=== PATIENT | female | born 1995 | race African-American/Black ===

== ENCOUNTER 2021-08-22 22:36 | Day surgery (SDC) | payer OTHER ==
[2021-08-22 22:59] VITALS: BMI 40.8
[2021-08-22] MEDS ORDERED: hydrALAZINE 20 MG/ML VIAL SLOW IVP PRN (23:29)
== END 2021-08-22 23:40 | disposition home or self-care (01) ==
LOC: CSHLD/OP 22:36
PROVIDERS: ATTEND Family Medicine
DX: O36.8130 Decreased fetal movements, third trimester, not applicable or unspecified (principal); Z3A.35 35 weeks gestation of pregnancy
CPT/HCPCS: 99282

== ENCOUNTER 2021-09-09 14:53 | Inpatient (IN) | payer OTHER ==
[2021-09-09] MEDS ORDERED: Lidocaine 1% (PF) 30 ML VIAL SC PRN (16:23)
[2021-09-09] MEDS ORDERED: Ondansetron PF 4 MG/2 ML Vial IVP PRN (16:23)
[2021-09-09] MEDS ORDERED: Acetaminophen 500 MG TAB PO PRN (16:23)
[2021-09-09] MEDS ORDERED: Butorphanol Tartrate 1 MG/ML VIAL SLOW IVP PRN (16:23)
[2021-09-09] MEDS ORDERED: Promethazine HCl 25 MG/ML VIAL IM PRN (16:23)
[2021-09-09] MEDS ORDERED: hydrALAZINE 20 MG/ML VIAL SLOW IVP PRN (16:23)
[2021-09-09] MEDS ORDERED: NS w/ Oxytocin 30 units 500 ML IV SCH ×2 (16:30→16:45)
[2021-09-09] MEDS ORDERED: Ibuprofen 800 MG TAB PO PRN (16:31)
[2021-09-09] MEDS ORDERED: Misoprostol 200 MCG TAB PR PRN (16:31)
[2021-09-09] MEDS ORDERED: Diphenoxylate HCl/Atropine Tablet PO PRN (16:31)
[2021-09-09] MEDS ORDERED: Carboprost 250 MCG/ML AMP IM PRN (16:31)
[2021-09-09] MEDS ORDERED: HYDROcodone/Acetaminophen 5/325 mg Tablet PO PRN (16:31)
[2021-09-09] MEDS ORDERED: Penicillin G Potassium 5 MILL.UNITS VIAL ONE (16:45)
[2021-09-09] MEDS ORDERED: Penicillin G Potassium 5 MILL.UNITS in Sodium Chloride 0.9% 100 ML IVPB SCH (16:45)
[2021-09-09] MEDS ORDERED: Misoprostol 100 MCG TAB ONE (16:45)
[2021-09-09 16:57] LABS: Hemoglobin 11.1 g/dL (12.0-15.5); Mean Corpuscular HGB CONC 32.1 g/dL (32.0-36.0); Mean Corpuscular Hemoglobin 27.4 pg (27.0-33.0); Mean Corpuscular Volume 85.4 fl (81.6-98.3); Mean Platelet Volume 10.6 fl (7.4-10.4); Platelet Count 305 10x3/uL (150-450); RBC Distribution Width 12.6 % (11.5-14.5); Red Blood Cell (RBC) Count 4.05 10x6/uL (3.90-5.03); White Blood Cell (WBC) Count 6.7 10x3/uL (3.5-10.5)
[2021-09-09 17:16] LABS: ALT (SGPT) 9 U/L (8-55); AST (SGOT) 15 U/L (5-34); Albumin 3.1 g/dL (3.5-5.0); Alkaline Phosphatase 186 U/L (40-110); Anion Gap 11 mmol/L (10-20); BUN (Urea Nitrogen) 7 mg/dL (7.0-18.7); Bilirubin, Total 0.3 mg/dL (0.2-1.2); Calc. Creatinine Clearance 233 mL/min (70-130); Carbon Dioxide 24 mmol/L (22-29); Chloride 104 mmol/L (98-107); Globulin 3.5 g/dL (2.4-3.5); Glucose 82 mg/dL (70-105); Potassium 3.8 mmol/L (3.5-5.1); Protein, Total 6.6 g/dL (6.0-8.3); Sodium 135 mmol/L (136-145)
[2021-09-09 17:36] LABS: Hep B Surf Ag Non-Reactive S/CO (NonReactive); Syphilis Antibody Nonreactive (Nonreactive); Syphilis Antibody Index 0.05 S/CO (<1.00 Non-Reactive)
[2021-09-09 17:38] LABS: HBSAg Index 0.17 S/CO (0-0.99)
[2021-09-09 18:49] LABS: SARS-CoV-2 NAA Rapid Test Not Detected (NotDetected)
[2021-09-09] MEDS: Penicillin G 2.5 MILL.units 2.5 MILL.UNITS in Premix Bag 1 BAG IVPB SCH (20:55)
[2021-09-09 20:58] LABS: Creatinine, Urine 198.36 mg/dL (47-110)
[2021-09-09] MEDS ORDERED: Magnesium Sulfate 20 gm/500 ml 20 GM/500 ML BAG ONE (23:39)
[2021-09-10] MEDS ORDERED: Fentanyl 2 mcg/Bup 0.1% Cadd 100 ML ONE ×2 (00:02→08:10)
[2021-09-10] MEDS ORDERED: Naloxone HCl 0.4 mg/ml Vial IVP PRN ×2 (00:37)
[2021-09-10] MEDS ORDERED: Ondansetron PF 4 MG/2 ML Vial IVP PRN ×2 (00:37→14:58)
[2021-09-10] MEDS ORDERED: Hydrocerin (Eucerin) Cream 120 gm Jar TOP PRN (00:37)
[2021-09-10] MEDS ORDERED: Promethazine HCl 25 MG/ML VIAL IM PRN ×2 (00:37→14:58)
[2021-09-10] MEDS ORDERED: diphenhydrAMINE 50 MG/ML VIAL IVP PRN (00:37)
[2021-09-10] MEDS ORDERED: ePHEDrine Sulfate 50 MG/10 ML VIAL SLOW IVP PRN (00:37)
[2021-09-10] MEDS ORDERED: Acetaminophen 325 MG TAB PO PRN (00:37)
[2021-09-10] MEDS ORDERED: Communication Order-Pharmacy FS SCH (00:45)
[2021-09-10] MEDS ORDERED: Fentanyl 2 mcg/Bupivacaine 0.1% Cassette 100 ML EPIDURAL SCH (00:45)
[2021-09-10] MEDS ORDERED: Lactated Ringer's 500 ML IV PRN (00:47)
[2021-09-10] MEDS: Misoprostol 100 MCG TAB VAG SCH ×2 (01:05→05:01)
[2021-09-10] MEDS: Lactated Ringer's 1,000 ML IV SCH ×3 (01:05→23:12)
[2021-09-10] MEDS: Penicillin G 2.5 MILL.units 2.5 MILL.UNITS in Premix Bag 1 BAG IVPB SCH ×3 (01:24→09:46)
[2021-09-10] MEDS ORDERED: Magnesium Sulfate 20 gm/500 ml 20 GM/500 ML BAG ONE (07:08)
[2021-09-10] MEDS ORDERED: Bupivacaine/Epinephrine 0.25% 30 ML VIAL ONE (08:00)
[2021-09-10] MEDS ORDERED: Lidocaine 1% (PF) 30 ML VIAL ONE (11:24)
[2021-09-10] MEDS ORDERED: Misoprostol 200 MCG TAB ONE (11:24)
[2021-09-10 13:03] LABS: RapidComm Collect By CBN
[2021-09-10] MEDS ORDERED: Benzocaine-Menthol 82.5 ML CAN TOP PRN (14:58)
[2021-09-10] MEDS ORDERED: Labetalol HCl 100 MG/20 ML VIAL SLOW IVP PRN (14:58)
[2021-09-10] MEDS ORDERED: NS w/ Oxytocin 30 units 500 ML IV SCH (14:58)
[2021-09-10] MEDS ORDERED: hydrALAZINE 20 MG/ML VIAL SLOW IVP PRN ×2 (14:58)
[2021-09-10] MEDS ORDERED: Lanolin Ointment 7 GM TUBE TOP PRN (14:58)
[2021-09-10] MEDS ORDERED: diphenhydrAMINE 25 MG CAP PO PRN (14:58)
[2021-09-10] MEDS ORDERED: Calcium Gluc 4.6 MEQ/10 ML (100 MG/ML) SLOW IVP PRN (14:58)
[2021-09-10] MEDS ORDERED: Milk Of Magnesia 30 ML UDCUP PO PRN (14:58)
[2021-09-10] MEDS ORDERED: Bisacodyl 10 MG SUPP PR PRN (14:58)
[2021-09-10] MEDS: HYDROcodone/Acetaminophen 5/325 mg Tablet PO PRN ×2 (16:45→16:46)
[2021-09-10] MEDS: Magnesium Sulfate 20 gm/500 ml 20 GM/500 ML BAG IVPB SCH (16:50)
[2021-09-10 17:31] LABS: RapidComm Collect By CBN; pH (Cord, venous) 7.279 (7.250-7.350)
[2021-09-10 18:07] VITALS: BMI 43.1
[2021-09-10] MEDS ORDERED: cloNIDine 0.1 MG TAB PO PRN (19:29)
[2021-09-10] MEDS: NIFEdipine XL 30 MG TAB PO SCH (22:04)
[2021-09-10] MEDS: Docusate 100 MG CAP PO SCH (22:04)
[2021-09-11] MEDS: Ibuprofen 800 MG TAB PO SCH ×5 (00:16→20:53)
[2021-09-11] MEDS: Magnesium Sulfate 20 gm/500 ml 20 GM/500 ML BAG IVPB SCH (02:11)
[2021-09-11 05:10] LABS: Magnesium 6.3 mg/dL (1.6-2.6)
[2021-09-11] MEDS: HYDROcodone/Acetaminophen 5/325 mg Tablet PO PRN (06:14)
[2021-09-11] MEDS: Ferrous Sulfate 325 MG TAB PO SCH ×3 (12:16→16:58)
[2021-09-11] MEDS: Prenatal Vitamin 1 TAB PO SCH (12:18)
[2021-09-11] MEDS: Docusate 100 MG CAP PO SCH ×2 (12:18→20:53)
[2021-09-11] MEDS ORDERED: Boostrix 0.5 ML (Tdap) VIAL IM ONE (14:58)
[2021-09-11] MEDS: Penicillin G 2.5 MILL.units 2.5 MILL.UNITS in Premix Bag 1 BAG IVPB SCH (16:58)
[2021-09-11] MEDS: NIFEdipine XL 30 MG TAB PO SCH (20:53)
[2021-09-12] MEDS: Ibuprofen 800 MG TAB PO SCH ×2 (05:53→14:19)
[2021-09-12] MEDS: Docusate 100 MG CAP PO SCH (08:26)
[2021-09-12] MEDS: Ferrous Sulfate 325 MG TAB PO SCH (08:27)
[2021-09-12] MEDS: Prenatal Vitamin 1 TAB PO SCH (08:27)
[2021-09-12 11:35] VITALS: BP 136/75; TEMP 98.5
== END 2021-09-12 16:30 | disposition home or self-care (01) | DRG 807 ==
LOC: CSHLD 14:53 → CSHPP 09-11 16:15
PROVIDERS: ADMIT Family Medicine; ATTEND Family Medicine
PROC: 10D07Z6 Extraction of Products of Conception, Vacuum, Via Natural or Artificial Opening (ICD-10-PCS; principal; 2021-09-10)
PROC: 3E0P7VZ Introduction of Hormone into Female Reproductive, Via Natural or Artificial Opening (ICD-10-PCS; 2021-09-10)
PROC: 3E0334Z Introduction of Serum, Toxoid and Vaccine into Peripheral Vein, Percutaneous Approach (ICD-10-PCS; 2021-09-10)
PROC: 10907ZC Drainage of Amniotic Fluid, Therapeutic from Products of Conception, Via Natural or Artificial Opening (ICD-10-PCS; 2021-09-10)
PROC: 0W8NXZZ Division of Female Perineum, External Approach (ICD-10-PCS; 2021-09-10)
DX: O14.94 Unspecified pre-eclampsia, complicating childbirth (principal); Z37.0 Single live birth; Z20.822 Contact with and (suspected) exposure to COVID-19; Z3A.38 38 weeks gestation of pregnancy; O99.824 Streptococcus B carrier state complicating childbirth; E66.9 Obesity, unspecified; O99.214 Obesity complicating childbirth; O26.893 Other specified pregnancy related conditions, third trimester; Z67.21 Type B blood, Rh negative; O76 Abnormality in fetal heart rate and rhythm complicating labor and delivery
CPT/HCPCS: 36415; 80053; 82570; 82805; 83735; 84156; 85027; 85461; 86780; 86850; 86900; 86901; 87340; 88307; 90384; 96372; J0360; J0595; J2540; J2590; J3475; J7120; U0002

== ENCOUNTER 2022-02-18 11:23 | Outpatient (CLI) | payer OTHER | END 2022-02-18 11:24 | disposition home or self-care (01) | LOC: CSHRAD 11:23 | PROVIDERS: ATTEND Family Medicine | DX: M54.6 Pain in thoracic spine (principal); G89.29 Other chronic pain; M54.50 Low back pain, unspecified; M53.87 Other specified dorsopathies, lumbosacral region | CPT/HCPCS: 72072; 72100 ==

== ENCOUNTER 2022-04-26 12:30 | Emergency (ER) | payer OTHER ==
[2022-04-26 14:38] LABS: Bilirubin Neg (Negative); Blood, Urine 250 (Negative); Clarity Clear (Clear); Glucose, Urine (Dipstick) Normal (Negative); Ketone, Urine Negative (Negative); Leukocyte 25 (Negative); Nitrite Negative (Negative); Protein, Urine (Dipstick) 15 mg/dl (Neg-Trace)
[2022-04-26 14:40] LABS: Pregnancy Test - Urine (BHCG) Negative (Negative); Pregu Control Background? CLEAR/WHITE (CLR/WHITE); Pregu Control Bar Appear? YES (CONTROL BAR)
[2022-04-26 14:44] LABS: Bacteria/HPF None Seen HPF (None Seen); Squamous Epithelial 0-3 HPF (0-3); WBC/HPF 0-3 HPF (0-3)
== END 2022-04-26 15:00 | disposition home or self-care (01) ==
LOC: CSHERS 12:30
DX: K08.89 Other specified disorders of teeth and supporting structures (principal); R30.0 Dysuria
CPT/HCPCS: 81003; 81015; 81025; 99283

== ENCOUNTER 2022-05-16 10:58 | Emergency (ER) | payer OTHER ==
[2022-05-16 12:35] LABS: Bilirubin Neg (Negative); Blood, Urine Negative (Negative); Clarity Clear (Clear); Glucose, Urine (Dipstick) Normal (Negative); Ketone, Urine Negative (Negative); Leukocyte 25 (Negative); Nitrite Negative (Negative); Protein, Urine (Dipstick) Negative (Neg-Trace); Urobilinogen Normal mg/dL (Less than 2)
[2022-05-16 12:39] LABS: Pregnancy Test - Urine (BHCG) Negative (Negative); Pregu Control Background? CLEAR/WHITE (CLR/WHITE); Pregu Control Bar Appear? YES (CONTROL BAR)
[2022-05-16 13:01] LABS: Bacteria/HPF None Seen HPF (None Seen); RBC/HPF None Seen HPF (0-3); WBC/HPF None Seen HPF (0-3)
== END 2022-05-16 13:17 | disposition home or self-care (01) ==
LOC: CSHERS 10:58
DX: J20.9 Acute bronchitis, unspecified (principal)
CPT/HCPCS: 71045; 81003; 81015; 81025; 87804

== ENCOUNTER 2023-10-19 09:52 | Outpatient (CLI) | payer OTHER | END 2023-10-19 09:53 | disposition home or self-care (01) | LOC: CSHULT 09:52 | PROVIDERS: ATTEND Nurse Practitioner Women's Health | DX: O09.892 Supervision of other high risk pregnancies, second trimester (principal); Z3A.26 26 weeks gestation of pregnancy | CPT/HCPCS: 76805 ==

== ENCOUNTER 2024-01-10 21:58 | Inpatient (IN) | payer OTHER ==
[2024-01-10 22:17] VITALS: BMI 42.4
[2024-01-10] MEDS ORDERED: hydrALAZINE 20 MG/ML VIAL SLOW IVP PRN (23:48)
[2024-01-11] MEDS ORDERED: Tranexamic Acid 1,000 MG/10 ML VIAL IVP PRN (01:00)
[2024-01-11] MEDS ORDERED: Acetaminophen 500 MG TAB PO PRN (01:00)
[2024-01-11] MEDS ORDERED: Ondansetron PF 4 MG/2 ML Vial IVP PRN ×3 (01:00→05:35)
[2024-01-11] MEDS ORDERED: Carboprost 250 MCG/ML AMP IM PRN (01:00)
[2024-01-11] MEDS ORDERED: Promethazine HCl 25 MG/ML VIAL IM PRN ×3 (01:00→05:35)
[2024-01-11] MEDS ORDERED: Oxytocin 30 units/NS 500 ML 500 ML IV SCH ×3 (01:00→05:35)
[2024-01-11] MEDS ORDERED: Lidocaine 1% (PF) 30 ML VIAL SC PRN (01:00)
[2024-01-11] MEDS ORDERED: Misoprostol 200 MCG TAB PR PRN (01:00)
[2024-01-11] MEDS ORDERED: Ibuprofen 800 MG TAB PO PRN (01:00)
[2024-01-11] MEDS ORDERED: Docusate 100 MG CAP PO PRN (01:00)
[2024-01-11] MEDS ORDERED: hydrALAZINE 20 MG/ML VIAL SLOW IVP PRN ×2 (01:00→05:35)
[2024-01-11] MEDS ORDERED: Methylergonovine 0.2 MG/ML VIAL IM PRN (01:00)
[2024-01-11] MEDS ORDERED: Diphenoxylate HCl/Atropine Tablet PO PRN ×2 (01:00)
[2024-01-11] MEDS: fentaNYL 50 mcg/mL 1 mL Vial SLOW IVP SCH (01:19)
[2024-01-11 01:21] LABS: Hemoglobin 11.2 g/dL (12.0-15.5); Mean Corpuscular Hemoglobin 26.1 pg (27.0-33.0); Mean Corpuscular Volume 81.6 fL (81.6-98.3); Mean Platelet Volume 10.4 fL (7.4-10.4); Platelet Count 362 10x3/uL (150-450); RBC Distribution Width 13.2 % (11.5-14.5); Red Blood Cell (RBC) Count 4.29 10x6/uL (3.90-5.03); White Blood Cell (WBC) Count 7.4 10x3/uL (3.5-10.5)
[2024-01-11 01:53] LABS: Syphilis Antibody Nonreactive (Nonreactive); Syphilis Antibody Index 0.06 S/CO (<1.00 Non-Reactive)
[2024-01-11 01:54] LABS: Hep B Surf Ag - L&D Non-Reactive S/CO (NonReactive)
[2024-01-11] MEDS ORDERED: Lactated Ringer's 500 ML IV PRN (01:56)
[2024-01-11] MEDS ORDERED: diphenhydrAMINE 50 MG/ML VIAL IVP PRN (01:56)
[2024-01-11] MEDS ORDERED: Naloxone HCl 0.4 mg/ml Vial IVP PRN ×2 (01:56)
[2024-01-11] MEDS ORDERED: ePHEDrine Sulfate 50 MG/10 ML VIAL SLOW IVP PRN (01:56)
[2024-01-11] MEDS ORDERED: Moisturizing Cream (Eucerin) 113 GM JAR TOP PRN (01:56)
[2024-01-11] MEDS ORDERED: Acetaminophen 325 MG TAB PO PRN (01:56)
[2024-01-11] MEDS ORDERED: Communication Order-Pharmacy FS SCH (02:00)
[2024-01-11] MEDS ORDERED: fentaNYL 2 mcg/Ropivacaine 0.2% Epidural 100 ML CADD EPIDURAL SCH (02:00)
[2024-01-11] MEDS: fentaNYL/Ropivacaine Epidural 100 ML ONE (02:02)
[2024-01-11] MEDS ORDERED: Hepatitis B Vaccine 10 MCG/0.5 ML SYR ONE (02:46)
[2024-01-11] MEDS ORDERED: diphenhydrAMINE 25 MG CAP PO PRN (05:35)
[2024-01-11] MEDS ORDERED: Preparation H Ointment 28 GM TUBE PR PRN (05:35)
[2024-01-11] MEDS ORDERED: Bisacodyl 10 MG SUPP PR PRN (05:35)
[2024-01-11] MEDS ORDERED: Boostrix 0.5 ML (Tdap) VIAL (>/=7 yrs of age) IM ONE (05:35)
[2024-01-11] MEDS: Erythromycin Base 0.5% Oint 1 GM TUBE ONE (05:47)
[2024-01-11] MEDS: Phytonadione Neonatal 1 MG/0.5 ML AMP ONE (05:47)
[2024-01-11] MEDS: Ibuprofen 800 MG TAB PO SCH (06:21)
[2024-01-11] MEDS: Ferrous Sulfate 325 MG TAB PO SCH (08:37)
[2024-01-11] MEDS: Docusate 100 MG CAP PO SCH (09:02)
[2024-01-11] MEDS: Prenatal Vitamin 1 TAB PO SCH (09:02)
[2024-01-11] MEDS ORDERED: Bupivacaine 0.25% HCL 30 ML VIAL ONE (10:00)
[2024-01-11] MEDS: Milk Of Magnesia 30 ML UDCUP PO PRN (13:18)
[2024-01-11] MEDS: HYDROcodone/Acetaminophen 5/325 mg Tablet PO PRN (20:24)
[2024-01-12 08:03] VITALS: BP 140/78; TEMP 98.3
== END 2024-01-12 18:30 | disposition home or self-care (01) | DRG 807 ==
LOC: CSHLD/OP 21:58 → CSHLD 01-11 01:00 → CSHPP 01-11 05:20
PROVIDERS: ADMIT Family Medicine; ATTEND Family Medicine
PROC: 10E0XZZ Delivery of Products of Conception, External Approach (ICD-10-PCS; principal; 2024-01-11)
DX: O32.8XX0 Maternal care for other malpresentation of fetus, not applicable or unspecified (principal); Z37.0 Single live birth; Z3A.38 38 weeks gestation of pregnancy; D56.3 Thalassemia minor; O99.02 Anemia complicating childbirth
CPT/HCPCS: 51702; 85027; 85461; 86780; 86850; 86870; 86900; 86901; 87340; 90384; 96372; 99285; J0665; J3010

== ENCOUNTER 2025-02-18 14:11 | Emergency (ER) | payer SELFPAY ==
[~2025-02-18 14:11] MED LIST: Iopamidol 370 76% 100 ML VIAL ONE
[2025-02-18 14:48] LABS: Glucose, Urine (Dipstick) Normal (Negative); Leukocyte 100 (Negative); Protein, Urine (Dipstick) 15 mg/dl (Neg-Trace); Specific Gravity, Urine 1.020 (1.005-1.030)
[2025-02-18 14:50] LABS: Pregnancy Test - Urine (BHCG) Negative (Negative); Pregu Control Background? CLEAR/WHITE (CLR/WHITE); Pregu Control Bar Appear? YES (CONTROL BAR)
[2025-02-18 15:20] LABS: CAUTI Indications for Culture Pelvic or flank pain; RBC/HPF 0-3 HPF (0-3); WBC/HPF 0-3 HPF (0-3)
[2025-02-18 15:21] LABS: Bacteria/HPF None Seen HPF (None Seen); Urine Culture Reflex No No
[2025-02-18 15:27] LABS: #Basophils 0.04 10x3/uL (0.0-0.2); #Eosinophils 0.09 10x3/uL (0.0-0.5); #Monocytes 0.32 10x3/uL (0.0-1.1); #Neutrophils 3.54 10x3/uL (1.5-8.4); %Basophils 0.6 % (0.0-2.0); %Eosinophils 1.3 % (0.0-6.0); %Lymphocytes 43.5 % (18.0-47.0); %Monocytes 4.5 % (0.0-10.0); %Neutrophils 50.0 % (40.0-75.0); Hematocrit 39.4 % (34.9-44.5); Hemoglobin 12.3 g/dL (12.0-15.5); Mean Corpuscular Hemoglobin 25.1 pg (27.0-33.0); Mean Corpuscular Volume 80.2 fL (81.6-98.3); Platelet Count 393 10x3/uL (150-450); Red Blood Cell (RBC) Count 4.91 10x6/uL (3.90-5.03); White Blood Cell (WBC) Count 7.08 10x3/uL (3.5-10.5)
[2025-02-18 15:46] LABS: ALT (SGPT) 12 U/L (Less than 34); AST (SGOT) 17 U/L (11-34); Albumin 3.8 g/dL (3.1-4.5); Alkaline Phosphatase 131 U/L (40-110); Anion Gap 12 mmol/L (10-20); BUN (Urea Nitrogen) 13 mg/dL (7.0-18.7); Bilirubin, Total 0.3 mg/dL (0.3-1.2); Calc. Creatinine Clearance 0 mL/min (70-130); Calcium 9.5 mg/dL (7.8-10.44); Carbon Dioxide 27 mmol/L (22-29); Chloride 105 mmol/L (98-107); Globulin 4.4 g/dL (2.4-3.5); Glucose 95 mg/dL (70-105); Lipase 36 U/L (8-78); Potassium 3.6 mmol/L (3.5-5.1); Sodium 140 mmol/L (136-145)
[2025-02-18] MEDS ORDERED: cefTRIAXone (ROCEPHIN) 1 GM VIAL ONE (16:09)
[2025-02-19 00:18] LABS: Chlamydia by PCR, Vaginal Swab Not Detected (NotDetected); GC by PCR, Vaginal Swab Not Detected (NotDetected)
== END 2025-02-18 16:58 | disposition home or self-care (01) ==
LOC: CSHERS 14:11
DX: N39.0 Urinary tract infection, site not specified (principal); N76.0 Acute vaginitis; B96.89 Other specified bacterial agents as the cause of diseases classified elsewhere
CPT/HCPCS: 74177; 80053; 81001; 81025; 83605; 83690; 84443; 85025; 87086; 87480; 87491; 87510; 87591; 87660; 96365; J0696; Q9967